=== PATIENT | male | born 1960 | race Hispanic/Latino ===

== ENCOUNTER 2024-06-05 19:47 | Emergency (ER) | payer SELFPAY, OTHER ==
[2024-06-05 21:21] LABS: Absolute Lymphocytes (CBC) 0.7 K/uL (0.7-4.9); Absolute Monocytes 0.4 K/uL (0.1-1.3); Absolute Neutrophil 5.8 K/uL (1.8-8.0); Basophils % 0.4 % (0-1.3); Eosinophils % 0.1 % (0-4.4); Hematocrit 46.7 % (39.6-49.0); Hemoglobin 15.7 g/dL (13.6-17.9); Lymphocytes % 10.3 % (15.3-44.8); MCH 30.8 pg (27.0-35.0); MCHC 33.7 g/dL (32.0-36.0); MCV 91.3 fL (80-100); MPV 7.9 fL (7.6-11.3); Monocytes % 5.3 % (3.3-12.3); Neutrophils % 83.9 % (41.7-73.7); Platelets 219 thou/uL (152-406); RBC Red Blood Cell Count 5.11 M/uL (4.33-5.43); Red Cell Distribution Width 12.9 % (12.1-15.2)
--- NOTE | 2024-06-05 21:21 | RAD REPORT ---
EXAM: Chest Single View HISTORY: CHEST PAIN COMPARISON: None. FINDINGS: LUNGS/PLEURA: The lungs are clear. No pleural effusions or pneumothorax. No pulmonary edema. MEDIASTINUM: The mediastinal silhouette is within normal limits. CARDIAC: Within normal limits. UPPER ABDOMEN: No significant abnormality. BONES: Right clavicle fixation hardware. LINES/TUBES/OTHER: N/A IMPRESSION: No evidence of acute cardiopulmonary disease.
[2024-06-05] MEDS ORDERED: NA CHLORIDE 0.9% 1,000 ML ONE (21:30)
[2024-06-05] MEDS ORDERED: FENTANYL CITR 100 MCG/2 ML ONE (21:30)
[2024-06-05 21:40] LABS: Albumin 4.1 g/dL (3.4-5.0); Albumin/Globulin Ratio 1.2 (1.1-1.8); Anion Gap 10.5 mEq/L (5.0-15.0); Bilirubin Direct 0.2 mg/dL (0-0.2); Bilirubin Indirect, Calculated 0.5 mg/dL (0.2-0.8); Bilirubin Total 0.7 mg/dL (0.2-1.0); Globulin 3.5 g/dL (2.3-3.5); Magnesium 2.1 mg/dL (1.6-2.4); Potassium 3.5 mEq/L (3.5-5.1); Protein, Total 7.6 g/dL (6.4-8.2); Troponin High Sensitivity 22.3 pg/mL (<58.9)
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
[2024-06-06 00:12] VITALS: TEMP 98.2
[2024-06-06 00:13] VITALS: BP 171/86; O2SAT 96
--- NOTE | 2024-06-06 13:04 | EKG ---
Test Date: 2024-06-05 Test Time: 21:02:56 Director Of Analytics: NEDRA MEASUREMENT RESULTS: Intervals: Rate: 65 ND: 168 QRSD: 90 QT: 402 QTc: 418 [place]: P: 37 ND: 168 QRS: -31 T: 11 INTERPRETIVE STATEMENTS: Normal sinus rhythm Left axis deviation Abnormal ECG No previous ECG available for comparison Electronically Signed On 06-06-24 13:03:42 COMIC ILLUSTRATOR by Austin Bernabe
== END 2024-06-05 23:49 | disposition home or self-care (01) ==
LOC: ER 19:47
DX: R07.9 Chest pain, unspecified (principal); M79.605 Pain in left leg; R07.1 Chest pain on breathing; M54.2 Cervicalgia; V59.40XA Driver of pick-up truck or van injured in collision with unspecified motor vehicles in traffic accident, initial encounter
CPT/HCPCS: 36415; 70450; 71045; 71260; 72125; 74177; 80048; 80076; 83735; 84484; 85025; 85730; 93005; 96361; 96374; 99284; J3010; J7030; Q9967